=== PATIENT | male | born 1980 | race Two or more races ===

== ENCOUNTER 2020-08-21 18:36 | Emergency (ER) | payer OTHER ==
[~2020-08-21] VITALS: Ht 160 cm; Wt 56.7 kg
[2020-08-21 18:36] VITALS: BP 144/100
--- NOTE | 2020-08-21 18:36 | NUR ---
LYSSA MERCADO TAKEN TO BED #5
[2020-08-21] MEDS ORDERED: NACL 0.9% 1,000 ML IV ONE (18:40)
--- NOTE | 2020-08-21 19:03 | NUR ---
40 YEAR OLD MALE BIBA WITH [place] [employer] FOR ALOC. PT PLACED ON 51/50 HOLD BY PD FOR GRAVELY DISABLED. PER EMS PT STATES HE NEEDS METH TO SURVIVE. PT AOX2 TO NAME, LOCATION. PT GCS 14 (CONFUSED). PT DENIES DRUG USE, STATES HE DRANK ONLY 1 BEER. PT ALERT AND AWAKE, BREATHING EVEN AND UNLABORED, SKIN WARM AND DRY. BED IN LOWEST POSITION, LOCKED, BED RAIL UPX2. PMH - HTN, DM2, ESRD (DIALYSIS 2 MONTHS AGO) ALLERGIES - NKA
[2020-08-21 19:15] LABS: BASOPHILS % (AUTO) 0.3 % (0.0-2.0); EOSINOPHILS # (AUTO) 0.1 K/uL (0-0.4); EOSINOPHILS % (AUTO) 0.7 % (0.0-4.0); HEMOGLOBIN 11.3 g/dL (12.0-18.0); LYMPHOCYTES # (AUTO) 1.5 K/uL (2.0-11.5); LYMPHOCYTES % (AUTO) 12.3 % (20.5-51.1); MEAN CORPUSCULAR HEMOGLOBIN 29 pg (27-31); MEAN CORPUSCULAR HGB CONC 33 g/dL (33-37); MEAN CORPUSCULAR VOLUME 87.3 fL (80-94); MONOCYTES # (AUTO) 0.4 K/uL (0.8-1.0); MONOCYTES % (AUTO) 3.2 % (1.7-9.3); NEUTROPHILS # (AUTO) 10.2 K/uL (1.8-7.7); NEUTROPHILS % (AUTO) 83.5 % (42.2-75.2); PLATELET COUNT (AUTO) 514 K/uL (140-450); RED BLOOD CELL COUNT(AUTO) 3.89 MIL/uL (4.20-6.10); RED CELL DISTRIBUTION WIDTH 14.4 % (11.6-13.7); WHITE BLOOD COUNT (AUTO) 12.2 K/uL (4.8-10.8)
--- NOTE | 2020-08-21 19:21 | NUR ---
RECEIVED TRANSFER OF CARE REPORT FROM ROSEMARY QUEEN FOR CONTINUATION OF CARE.
--- NOTE | 2020-08-21 19:22 | NUR ---
PT FOUND ASLEEP IN SEMI-KLEIN'S POSITION IN BED. PT HAS VISIBLE EQUAL RISE AND FALL UPON RESPIRATION. PT SHOWED NO SIGNS OF DISTRESS. BED LOCKED IN LOWEST POSITION WITH 2 SIDE RAILS UP FOR SAFETY. WILL CONTINUE TO MONITOR.
--- NOTE | 2020-08-21 19:23 | NUR ---
REPORT GIVEN TO JAZZY QUEEN, TRANSFER OF CARE AT THIS TIME
[2020-08-21 19:31] LABS: ALBUMIN 3.6 g/dL (3.4-5.0); ANION GAP 16.3 (8-16); ASPARTATE AMINOTRANSFERASE 39 U/L (15-37); CARBON DIOXIDE 21.6 mmol/L (21-32); CHLORIDE 104 mmol/L (98-107); CREATININE 1.1 mg/dL (0.6-1.3); GFR ARICAN-AMERICAN 95 mL/min (>90); GLUCOSE 75 mg/dL (74-106); POTASSIUM 3.9 mmol/L (3.5-5.1); SODIUM SERUM 138 mmol/L (136-145); TOTAL BILIRUBIN 0.4 mg/dL (0.0-1.0); UREA NITROGEN, BLOOD 26 mg/dL (7-18)
[2020-08-21 19:38] LABS: ACETAMINOPHEN < 0.5 ug/ml (10-30); SALICYLATE < 2.8 mg/dL (2.8-20.0)
[2020-08-21] MEDS ORDERED: diphenhydrAMINE 50 MG/ML VIAL IVP ONE (19:45)
[2020-08-21] MEDS ORDERED: HALOPERIDOL IM 5 MG/ML VIAL IVP ONE (19:45)
[2020-08-21] MEDS ORDERED: LORazepam 2 MG/ML VIAL IVP ONE (19:45)
[2020-08-21 20:03] LABS: CKMB RELATIVE INDEX 1.5 (0.0-2.5)
[2020-08-21 20:13] LABS: APPEARANCE,URINE CLEAR (CLEAR); BILIRUBIN,URINE NEGATIVE (NEGATIVE); BLOOD, URINE NEGATIVE (NEGATIVE); COLOR,URINE YELLOW (YELLOW); LEUKOCYTE ESTERASE ,URINE 3+ (NEGATIVE); NITRITE, URINE NEGATIVE (NEGATIVE); UGLUCOSE NEGATIVE (NEGATIVE)
[2020-08-21 20:17] LABS: RBC,URINE 0-5 /HPF (0-5); WBC,URINE 80-100 /HPF (0-5)
[2020-08-21 20:21] LABS: BARBITURATE, URINE NEGATIVE ng/ml (NEG <=200); BENZODIAZEPINE, URINE NEGATIVE ng/mL (NEG <=200); CANNABINOID, URINE NEGATIVE ng/mL (NEG <=50); COCAINE, URINE NEGATIVE ng/mL (NEG <=300); OPIATE, URINE NEGATIVE ng/mL (NEG <=2000); PHENCYCLIDINE SCREEN,URINE NEGATIVE ng/mL (NEG <=25)
--- NOTE | 2020-08-21 22:00 | NUR ---
Patient appears to be resting comfortably in bed. Vital Signs within normal limits. Respirations even and unlabored.
--- NOTE | 2020-08-22 01:36 | NUR ---
PT HAD A BOWEL MOVEMENT. PT WAS CLEANED AND PERINEAL AREA WAS CLEANED. BED SHEETS WERE CHANGED. PT TOLERATED CLEANING WELL.
--- NOTE | 2020-08-22 02:45 | NUR ---
PT FOUND ASLEEP ON RIGHT SIDE IN BED. PTHAS VISIBLE EQUAL RISE AND FALL UPON RESPIRATION. NO DISTRESS NOTED. BED LOCKED IN LOWEST POSITION WITH 2 SIDE RAILS UP FOR SAFETY.
[2020-08-22] MEDS ORDERED: cefTRIAXone 1,000 MG VIAL ONE (03:19)
--- NOTE | 2020-08-22 03:20 | NUR ---
BLOOD CULTURES COLLECTED AND WALKED TO LAB.
[2020-08-22] MEDS ORDERED: NITR100C7 PO (05:07)
--- NOTE | 2020-08-22 05:10 | NUR ---
PT HAD A BOWEL MOVEMENT. 450 ML OF CLEAR YELLOW URINE COLLECTED IN URINAL. URINAL WAS EMPITED. URINAL LEFT AT BEDSIDE. PT WAS CLEANED AND PERINEAL AREA WAS CLEANED. PT TOLERATED CLEANING WELL. BED LOCKED IN LOWEST POSITION WITH 2 SIDE RAILS UP FOR SAFETY.
--- NOTE | 2020-08-22 05:25 | NUR ---
PT FOUND ASLEEP RESTING COMFORTABLLY IN BED IN SEMI-KLEIN'S POSITION. PT HAS VISIBLE EQUAL RISE AND FALL UPON RESPIRATION. NO DISTRESS NOTED. BED LOCKED IN LOWEST POSITION WITH 2 SIDE RAILS UP FOR SAFETY.
--- NOTE | 2020-08-22 07:09 | NUR ---
Report and continuation of care received from BRET Cullen.
--- NOTE | 2020-08-22 07:09 | NUR ---
TRANSFER OF CARE REPORT PROVIDED TO ASYA QUEEN.
--- NOTE | 2020-08-22 07:21 | NUR ---
Patient presents with both eyes closed, sleeping in low-fowlers position. Respirations even/unlabored. Bed locked in lowest position, side rails x 2.
--- NOTE | 2020-08-22 08:58 | NUR ---
PT WAKES UP FOR PAINFUL STIMULI ONLY AT THIS TIME. TRIED TO GET PATIENT TO GET UP TO EAT BREAKFAST BUT HE IS STILL TOO DROWSY. WILL CONTINUE TO MONITOR.
--- NOTE | 2020-08-22 09:13 | NUR ---
Patient presents with both eyes closed, sleeping in low-fowlers position. Respirations even/unlabored. Bed locked in lowest position, side rails x 2.
--- NOTE | 2020-08-22 10:15 | NUR ---
IV site flushed with 10mL NS flush; patent with good blood return.
--- NOTE | 2020-08-22 10:17 | NUR ---
Patient presents with both eyes closed, lying on left side of bed in semi-fowlers position. Patient is snoring at this time, awakes to painful stimuli. VSS. Respirations even/unlabored. Bed locked in lowest position, side rails x 2.
--- NOTE | 2020-08-22 12:45 | NUR ---
Patient sleeping in position of comfort, lying on left side of bed in semi-fowlers position. Patient is snoring at this time, awakes to painful stimuli. VSS. Respirations even/unlabored. Bed locked in lowest position, side rails x 2.
--- NOTE | 2020-08-22 13:50 | NUR ---
Patient presents awake, completing meal at this time.
[2020-08-22 14:10] VITALS: BP 124/62
--- NOTE | 2020-08-22 14:10 | NUR ---
Patient discharged with v/s stable. Written and verbal after care instructions given and explained. Patient alert, oriented and verbalized understanding of instructions. Ambulatory with steady gait. All questions addressed prior to discharge. ID band removed. Patient advised to follow up with PMD. Rx of Nitrofurantoin given. Patient educated on indication of medication including possible reaction and side effects. Opportunity to ask questions provided and answered.
== END 2020-08-22 14:10 | disposition home or self-care (01) ==
LOC: MED 18:36
DX: R41.82 Altered mental status, unspecified (principal); F15.10 Other stimulant abuse, uncomplicated; N39.0 Urinary tract infection, site not specified; F10.129 Alcohol abuse with intoxication, unspecified; E11.9 Type 2 diabetes mellitus without complications; I10 Essential (primary) hypertension; Z87.448 Personal history of other diseases of urinary system; Z59.0 Homelessness; Y90.9 Presence of alcohol in blood, level not specified
CPT/HCPCS: 36415; 80053; 80305; 81001; 82550; 82553; 84484; 85025; 87040; 87086; 93005; 96361; 96365; 96375; 99291; G0480; G0482; J0696; J1200; J1630; J2060; J7060; J7030